=== PATIENT | female | born 1990 | race Caucasian/White ===

== ENCOUNTER 2018-09-03 03:49 | Emergency (ER) | payer OTHER ==
[~2018-09-03] VITALS: Ht 177.8 cm; Wt 79.3 kg
--- NOTE | 2018-09-03 04:03 | NUR ---
PT WHEELED FROM TRIAGE TO ROOM WITH MOTHER ACCOMPANYING PT.
[2018-09-03] MEDS ORDERED: MORPHINE SULFATE 4 MG/ML, 1ML ONE ×2 (04:19→06:20)
[2018-09-03] MEDS ORDERED: ONDANSETRON 2MG/ML, 2ML ONE (04:19)
--- NOTE | 2018-09-03 04:20 | NUR ---
FIRST CONTACT WITH PT. PT PRESENTS TO ED WITH SHARP LEFT SIDED FLANK PAIN. PT DENIES ANY MEDICAL HISTORY. PT DENIES ANY SX AT THIS TIME. ALL MONITORS IN PLACE. CALL LIGHT WITHIN REACH. PT'S AOX4. RESPS EVEN AND UNLABORED.
[2018-09-03] MEDS: MORPHINE SULFATE 4 MG/ML, 1ML IVPush PRN ×2 (04:22→06:23)
--- NOTE | 2018-09-03 04:28 | NUR ---
PT MEDICATED PER EMAR. PT TOLERATED WELL. PT'S AOX4. RESPS EVEN AND UNLABORED.
[2018-09-03] MEDS ORDERED: SODIUM CHLORIDE FLUSH 10ML SYR IVF ONE (04:30)
[2018-09-03] MEDS ORDERED: ONDANSETRON 2MG/ML, 2ML IVPush ONE (04:30)
--- NOTE | 2018-09-03 04:35 | NUR ---
PT IS NOT ABLE TO PROVIDE URINE SAMPLE AT THIS TIME. EDMD NOTIFIED.
[2018-09-03 04:36] LABS: ALANINE AMINOTRANSFERASE 26 U/L (12-78); ALBUMIN 3.7 g/dL (3.4-5.0); ANION GAP 8 mmol/L (5-15); CHLORIDE 106 mmol/L (98-107); CREATININE 0.79 mg/dL (0.55-1.02)
[2018-09-03 04:41] LABS: ALKALINE PHOSPHATASE 36 U/L (45-117); BILIRUBIN,TOTAL 0.3 mg/dL (0.2-1.0); TOTAL PROTEIN 7.2 g/dL (6.4-8.2)
--- NOTE | 2018-09-03 05:11 | NUR ---
PT AMB TO BR AND BACK TO ROOM WITH STEADY GAIT. UA SENT.
[2018-09-03 05:29] LABS: CULTURE INDICATED? YES; MICROSCOPIC INDICATED
[2018-09-03 05:37] LABS: MEAN CORPUSCULAR HEMOGLOBIN 30.8 pg (27.0-34.8); MEAN CORPUSCULAR HGB CONC 32.3 g/dL (32.4-35.8); MEAN CORPUSCULAR VOLUME 95.3 fL (80-100); MEAN PLATELET VOLUME 9.7 fL (7.4-10.4); PLATELET COUNT 236 x10^3/uL (130-400); RED BLOOD COUNT 4.39 x10^6/uL (3.82-5.3); RED CELL DISTRIBUTION WIDTH 13.7 % (9.6-15.2)
[2018-09-03 06:00] LABS: MD YES
[2018-09-03 06:04] LABS: EOS#(MANUAL) 0.51 x10^3/uL (0.0-0.4); EOS% (MANUAL) 4 % (1-7); LYMPH#(MANUAL) 6.86 x10^3/uL (1-3.4); LYMPHS% (MANUAL) 54 % (22-44); MONOS#(MANUAL) 1.02 x10^3/uL (0.3-2.7); MONOS% (MANUAL) 8 % (2-9); REACTIVE LYMPHS # (MANUAL) 0.51 x10^3/uL (0-0); REACTIVE LYMPHS % (MANUAL) 4 % (0-0); SEG#(MANUAL) 3.81 x10^3/uL (1.8-6.8); SEGS% (MANUAL) 30 % (42-75)
[2018-09-03 06:05] LABS: <PLATELET ESTIMATE> ADEQUATE; <RBC MORPHOLOGY> NORMAL; LARGE PLATELETS 1+
--- NOTE | 2018-09-03 06:25 | NUR ---
PT MEDICATED PER EMAR FOR PAIN. PT TOLERATED WELL. PT'S AOX4. RESPS EVEN AND UNLABORED.
--- NOTE | 2018-09-03 06:51 | NUR ---
REPORT GIVEN TO JAIMIE OLSON.
[2018-09-03] MEDS ORDERED: HYDROcodone/APAP 5/325 TABLET PO ONE (07:00)
[2018-09-03] MEDS ORDERED: KETOROLAC 30 MG/1 ML IVPush ONE (07:00)
[2018-09-03] MEDS ORDERED: CYCLOBENZAPRINE 10 MG TABLET PO ONE (07:00)
[2018-09-03] MEDS ORDERED: CYCLOBENZAPRINE 10 MG TABLET ONE (07:15)
[2018-09-03] MEDS ORDERED: KETOROLAC 30 MG/1 ML ONE (07:15)
[2018-09-03] MEDS ORDERED: HYDROcodone/APAP 5/325 TABLET ONE (07:16)
[2018-09-03 08:09] VITALS: BP 131/81
--- NOTE | 2018-09-03 08:10 | NUR ---
Patient/Caregiver given discharge instructions and they have confirmed that they understand the instructions. Patient ambulatory with steady gait. PAIN LEVEL 1/10
== END 2018-09-03 08:11 | disposition home or self-care (01) ==
LOC: ED 05:30
DX: R10.9 Unspecified abdominal pain (principal)
CPT/HCPCS: 36415; 71045; 74176; 80053; 81001; 83690; 84703; 85025; 85379; 87086; 93005; 96374; 96375; 96376; 99284; J1885; J2270; J2405